=== PATIENT | female | born 1935 | race Caucasian/White ===

== ENCOUNTER 2023-07-07 07:46 | Emergency (ER) | payer MEDICARE, OTHER, SELFPAY ==
[2023-07-07 07:48] VITALS: BP 136/74
--- NOTE | 2023-07-07 08:19 | ED.GENMED ---
History of Present Illness
General
Chief Complaint: Swallowing Problem
Source: patient and spouse
Exam Limitations: none
Time Seen by Provider: 07/07/23 08:04
Nursing documentation reviewed up to this point in time: agreed with
Travel History
Have you had any contact with someone who has COVID-19?: No
Do you have any symptoms of coronavirus? Fever > 100 degrees, chills, cough, shortness of breath, sore throat, loss of taste or smell, muscle aches, or headache?: No
History of Present Illness
History of Present Illness:
88-year-old female with a past medical history of atrial fibrillation, TIA, irritable bowel syndrome who presents to the emergency department with her for evaluation of dysphagia and chest discomfort. Patient reports onset of symptoms about
2 weeks ago and they have been intermittent since that time. She reports she has had sensation of things getting caught in her throat when she swallows�she says sensation happens about the midsternum. She says that this is exclusively for solids
and she does not have any symptoms when swallowing liquids or yogurt. She says it is worse when she wakes up in the morning and seems to improve as the day goes on. It improves slightly when she drinks water. She says that she gets associated
discomfort in the mid sternum that last for hours at a time. She says that she has not had any nausea or vomiting with this. She denies any abdominal pain. She denies any breathing issues or coughing. She denies similar symptoms in the past.
She says she has not seen a doctor for this yet--she says she called to make an appointment but there was no availability for many weeks out.
Past History
Past History
ED Past Medical History: Arrthythmia, Hypercholesterolemia and Other (TIA)
ED Past Surgical History: Cholecystectomy and Gynecological
Social History
Tobacco: Former smoker
Alcohol: Occasional
Drug: None
Personal:
Living: with family
Employment: Retired
Family History
Family History: Other
Review of Systems
Review of Systems
All Other Systems: ROS reviewed and negative except as documented in HPI and ROS
Constitutional: Denies fever or chills
EENT: Denies sore throat or runny nose
Respiratory: Denies cough or trouble breathing
Cardiac: Reports chest pain; Denies palpitations
ABD/GI: Reports other (Dysphagia); Denies abdominal pain, nausea or vomiting
: Denies flank pain
Musculoskeletal: Denies neck pain or back pain
Neurological: Denies dizzy or headache
Phy Exam
Physical Exam
Physical Exam:
General: Awake, alert; no acute distress
Head: Normocephalic, atraumatic
Eyes: Conjunctiva normal, EOMI
Throat: Airway intact, handling secretions, midline uvula with no erythema or edema, no tonsillar enlargement
Neck: Trachea midline, supple without meningismus, no thyroid nodules or enlargement
Lungs: Clear to auscultation bilaterally, no wheezing, rales, rhonchi
Heart: Regular rate and rhythm, no murmurs, gallops, or rubs
Abd: Soft, non distended, nontender
Neuro: Cranial nerves grossly intact, speech fluid
Skin: no rash
Extremities: No edema in extremities, warm and well-perfused
Scores
Heart Failure Risk
Heart Failure Risk Score: Not Applicable
Heart Score for Chest Pain Patients
STEMI patient?: Not applicable
Withdrawal Assessment of Alcohol
Withdrawal Assessment Completed?: Not applicable
Course
Orders/Labs/Results
Orders:
Orders
07/07/23 08:18
Electrocardiogram (*1) Urgent
Reason for Study: Chest Pain
EKG- Treatment ONCE
Mag Hydrox/Al Hydrox/Simeth [Maalox] 30 ml Phenobarb/Hyoscy/Atropine/Scop [] 10 ml Viscous Lidocaine 2% [Xylocaine Viscous Cup] 10 ml PO NOW
Pantoprazole [Protonix IV] 40 mg IV NOW STA
07/07/23 08:25
CR Chest - 2 Views Urgent
Comment:
Reason For Exam: dysphagia, chest discomfort
07/07/23 08:28
Mag Hydrox/Al Hydrox/Simeth [Maalox] 30 ml .ROUTE .STK-MED ONE
Phenobarb/Hyoscy/Atropine/Scop [] 10 ml .ROUTE .STK-MED ONE
Viscous Lidocaine 2% [Xylocaine Viscous Cup] 15 ml .ROUTE .STK-MED ONE
07/07/23 08:49
Complete Blood Count/With Diff Urgent
Comprehensive Metabolic Panel Urgent
Lipase Urgent
TSH Reflex To Free T4 Urgent
Troponin I Urgent
Abnormal Lab Results
07/07/23
08:49
RBC 3.74 L 10^6/uL
(4.20-5.40)
Hct 36.3 L %
(37.0-47.0)
MCH 32.9 H pg
(27.0-31.0)
Eosinophils % 7.9 H %
(0-6)
Chloride 108 H mmol/L
(98-107)
Total Protein 6.1 L g/dl
(6.3-8.2)
07/07/23 08:49
07/07/23 08:49
Vital Signs
Initial and Last Documented VS:
Initial Vital Signs
Temp Pulse Resp BP Pulse Ox
36.7 C 70 18 136/74 97
07/07/23 07:48 07/07/23 07:48 07/07/23 07:48 07/07/23 07:48 07/07/23 07:48
Last Documented Vital Signs
Temp Pulse Resp BP Pulse Ox
36.7 C 70 18 136/74 97
07/07/23 07:48 07/07/23 07:48 07/07/23 07:48 07/07/23 07:48 07/07/23 07:48
MDM/Problems Addressed
Differential Diagnosis Includes:
Esophageal stricture, esophagitis, GERD, esophageal obstruction, tumor/mass, thyroid enlargement
MDM/Problems Addressed:
88-year-old female presents for evaluation of dysphagia with solids and sensation of chest discomfort/food sticking in her mid sternum. This has been ongoing for 2 weeks, worse in the morning. No nausea or vomiting. No breathing difficulties.
Vital signs normal here. Exam as above. History most consistent with GERD/esophagitis although differential would also include stricture. Given her report of chest discomfort will check an EKG, basic screening labs including troponin, thyroid
studies. Check chest x-ray. Will plan to treat with green grabber and Protonix. She will need a GI referral and likely endoscopy but no clear indication for emergent endoscopy�she is handling secretions has no signs of esophageal obstruction.
Monitor closely reassess after the above.
Discussed with gastroenterology�they can see patient in the office this afternoon at 1:45 PM. Pending workup will plan likely for discharge with this follow-up plan in place.
Labs reviewed: CBC and CMP unremarkable, troponin undetectable, thyroid studies normal. Chest x-ray reviewed by me shows no acute disease. Suspect likely GERD/esophagitis. Stricture also a consideration. Patient feeling much better after
treatment here in the ED. We have a strong follow-up plan in place patient to see GI later today in the office. At this point we will plan for discharge will prescribe PPI. Patient comfortable with this plan. Spoke about return precautions all
questions answered.
*Pulse Oximetry
Patient hypoxic: no
*EKG
Interpreted by ED Provider?: Yes
Heart Rate: 64
Rate: normal
Rhythm: sinus
[place]: normal axis
Interval: normal interval
QRS Pattern: normal QRS
Ischemia: other (Possible inferior infarct age undetermined similar to prior)
*Critical Care Note
Total Time (30-74mins, 75-104mins- exclusive of procedures): Not Applicable
Data Reviewed
Review of Other/Old Records Reveals: Labs and Records
Source: patient and spouse
Patient Management
Social determinants of health affecting care: Strong social support
Discussion with other providers: Outside Salesman (Discussed with GI)
ED Attending Note
-
Portions of this chart may have been created with voice recognition software.� Occasional wrong word or��sound alike� substitutions may have occurred due to the inherent limitations of voice recognition software.
Discharge Plan
Departure
Patient Disposition: Home (Routine Discharge)
Date of Disposition: 07/07/23
Time of Disposition: 09:57
Patient with high blood pressure during this ER visit?: No
Discharge Problem:
Dysphagia
Instructions: Dysphagia, Esophagitis
Prescriptions:
New
pantoprazole 40 mg tablet,delayed release (DR/EC)
40 mg PO BID Qty: 60 0RF
No Action
atorvastatin 10 MG tablet
10 mg PO QPM Qty: 30 0RF
ascorbic acid (vitamin C) [Vitamin C] 500 MG tablet
500 mg PO DAILY
conjugated estrogens [Premarin] 0.3 MG tablet
0.3 mg PO DAILY
mirabegron [Myrbetriq] 50 MG tablet extended release 24 hr
50 mg PO DAILY
acetaminophen [Tylenol] 325 MG capsule
650 mg PO Q4H PRN (Reason: KNEE PAIN)
multivitamin with iron [Daily Multiple Vitamins/Iron] 1 EACH tablet
1 ea PO DAILY
aspirin 81 MG tablet,delayed release (DR/EC)
81 mg PO HS
metoprolol succinate [Toprol XL] 25 MG tablet extended release 24 hr
25 mg PO HS
diphenoxylate-atropine 1 TABLET tablet
1 tab PO Q4HPRN PRN (Reason: diarrhea)
cholecalciferol (vitamin D3) [Vitamin D3] 25 MCG capsule
1,000 unit PO DAILY
apixaban [Eliquis] 5 MG tablet
5 mg PO BID
Referrals:
Tip Davalos MD [Active] - 07/07/23 1:45 pm
Activity Restrictions/Additional Instructions:
Thank you for visiting the Emergency Department at [facility].
1. Please schedule a follow up appointment as directed. Call first thing tomorrow morning to make an appointment.
2. If indicated, please take your medications as instructed and indicated on discharge paperwork.
3. If any of your symptoms do not improve, or persist, or become more severe within 6-12 hours, please return to the emergency department for further care.
4. Please return to the emergency department if you develop a headache, neck pain/stiffness, fever greater than 100.4F, chest pain, shortness of breath, persistent nausea, vomiting, slurred speech, difficulty walking, numbness/tingling, weakness,
signs of infection or any other symptoms that are worrisome to you.
Please call [phone] if you have any questions.
Interventions
Interventions:
*Risk Screen - Suicide Last Done: 07/07/23 07:48
*General Assessment Last Done: 07/07/23 07:48
*Neglect/Abuse Screening Last Done: 07/07/23 07:48
ED- Fall Risk Assessment Last Done: 07/07/23 08:45
*ED COVID-19 Vaccine History Last Done: 07/07/23 07:48
PU-Zhvhog-Suetvrvbtu Assessment Last Done: 07/07/23 08:45
ED- Pulmonary Assessment Last Done: 07/07/23 08:45
[2023-07-07] MEDS: PROTONIX IV 40 MG IV (08:47)
[2023-07-07] MEDS: MAALOX 50 PO (08:47)
[2023-07-07 09:10] LABS: % Basophils 0.6 % (0-2); % Eosinophils 7.9 % (0-6); % Immature Granulocytes 0.4 % (0-0.5); % Lymphocytes 32.1 % (20.5-51.1); % Monocytes 7.5 % (1.7-9.3); % Neutrophils 51.5 % (42.2-75.2); Absolute Eosinophils 0.4 10^3/uL (0-0.7); Absolute Lymphocytes 1.7 10^3/uL (1.2-3.4); Absolute Monocytes 0.4 10^3/uL (0.1-0.6); Absolute Neutrophils 2.7 10^3/uL (1.4-6.5); Hematocrit 36.3 % (37.0-47.0); Hemoglobin 12.3 g/dL (12.0-16.0); Mean Corp Hgb Conc. 33.9 g/dL (33.0-37.0); Mean Corpuscular Hgb 32.9 pg (27.0-31.0); Mean Corpuscular Volume 97.1 fL (81.0-99.0); Mean Platelet Volume 9.8 fL (7.4-10.4); Nucleated Red Blood Cells % 0 %; Platelet Count 191 10^3/uL (130-400); Red Blood Cell Count 3.74 10^6/uL (4.20-5.40); Red Cell Dist. Width 13.8 % (11.5-14.5); White Blood Cell Count 5.2 10^3/uL (4.8-10.8)
[2023-07-07 09:35] LABS: Troponin I < 0.012 ng/ml
[2023-07-07 09:52] LABS: ALT (SGPT) 18 U/L (0-35); AST (SGOT) 25 U/L (14-36); Albumin 3.7 g/dl (3.5-5.0); Alkaline Phosphatase 63 U/L (38-126); Blood Urea Nitrogen 14 mg/dl (7-17); Calcium 9.1 mg/dl (8.4-10.2); Carbon Dioxide 28 mmol/L (22-30); Chloride 108 mmol/L (98-107); Glucose 93 mg/dl (70-99); Lipase 78 U/L (23-300); Potassium 4.1 mmol/L (3.5-5.1); Sodium 139 mmol/L (135-145); Total Bilirubin 1.1 mg/dl (0.2-1.3); Total Protein 6.1 g/dl (6.3-8.2); eGFR > 60.00
[2023-07-07 09:55] LABS: TSH Reflex To Free T4 3.72 uIU/ml (0.47-4.68)
[2023-07-07 10:20] VITALS: BP 144/73
== END 2023-07-07 10:33 | disposition home or self-care (01) ==
LOC: EMR 07:46
PROVIDERS: EMERGENCY PHYSICIAN Emergency Medicine; FAMILY PHYSICIAN Family Medicine
DX: R13.10 Dysphagia, unspecified (principal); R07.89 Other chest pain; I48.91 Unspecified atrial fibrillation; Z86.73 Personal history of transient ischemic attack (TIA), and cerebral infarction without residual deficits; Z87.891 Personal history of nicotine dependence
CPT/HCPCS: 99285; 96374; 71046; 80053; 83690; 84443; 84484; 85025; 93005

== ENCOUNTER 2023-07-12 05:07 | Emergency (ER) | payer MEDICARE, OTHER, SELFPAY ==
[2023-07-12 05:10] VITALS: BP 140/82
[2023-07-12 05:25] LABS: % Basophils 0.4 % (0-2); % Eosinophils 7.5 % (0-6); % Immature Granulocytes 0.1 % (0-0.5); % Lymphocytes 40.8 % (20.5-51.1); % Monocytes 6.9 % (1.7-9.3); % Neutrophils 44.3 % (42.2-75.2); Absolute Eosinophils 0.5 10^3/uL (0-0.7); Absolute Lymphocytes 2.9 10^3/uL (1.2-3.4); Absolute Monocytes 0.5 10^3/uL (0.1-0.6); Absolute Neutrophils 3.1 10^3/uL (1.4-6.5); Hematocrit 37.8 % (37.0-47.0); Hemoglobin 12.4 g/dL (12.0-16.0); Mean Corp Hgb Conc. 32.8 g/dL (33.0-37.0); Mean Corpuscular Hgb 32.1 pg (27.0-31.0); Mean Corpuscular Volume 97.9 fL (81.0-99.0); Mean Platelet Volume 9.9 fL (7.4-10.4); Nucleated Red Blood Cells % 0 %; Platelet Count 201 10^3/uL (130-400); Red Blood Cell Count 3.86 10^6/uL (4.20-5.40); White Blood Cell Count 7.1 10^3/uL (4.8-10.8)
[2023-07-12 05:45] LABS: ALT (SGPT) 16 U/L (0-35); AST (SGOT) 24 U/L (14-36); Albumin 3.8 g/dl (3.5-5.0); Alkaline Phosphatase 62 U/L (38-126); Blood Urea Nitrogen 18 mg/dl (7-17); Calcium 9.4 mg/dl (8.4-10.2); Carbon Dioxide 26 mmol/L (22-30); Chloride 108 mmol/L (98-107); Glucose 104 mg/dl (70-99); Lipase 99 U/L (23-300); Potassium 3.7 mmol/L (3.5-5.1); Sodium 138 mmol/L (135-145); Total Bilirubin 0.9 mg/dl (0.2-1.3); Total Protein 6.3 g/dl (6.3-8.2); eGFR > 60.00
[2023-07-12 06:07] VITALS: BP 147/89
[2023-07-12 06:08] VITALS: BMI 29.3
--- NOTE | 2023-07-12 06:38 | ED.GENMED ---
History of Present Illness
General
Chief Complaint: Abdominal Pain
Source: patient and spouse
Time Seen by Provider: 07/12/23 06:37
Travel History
Have you had any contact with someone who has COVID-19?: No
Do you have any symptoms of coronavirus? Fever > 100 degrees, chills, cough, shortness of breath, sore throat, loss of taste or smell, muscle aches, or headache?: No
History of Present Illness
History of Present Illness:
This patient is an 88-year-old female presents emergency department complaints of discomfort across her lower chest associated with frequent burping. For the past 2 weeks, she has been having episodes of feeling like she cannot fully swallow solids
and also pills. This will create a sensation of chest discomfort in the lower chest area which will then migrate to the lower sternal area associated with frequent burping. She describes these as 'attacks', and seem to be particularly worse after
waking up. She was seen in the emergency department on , and was able to see GI the same day, who agreed with the ER assessment that this is likely related to GERD/esophagitis, consideration for stricture. She is planning to get an
endoscopy on July 27 and was advised to continue the Protonix, 40 mg, every morning before breakfast. She has not yet taken the Protonix this morning. Today, she awoke at approximately 4:30 AM with the same discomfort that is now located in the
epigastric lower sternal area. She took Tums, without full relief of symptoms. She says it feels 'blocked up' in the epigastric lower sternal area. She denies vomiting, nausea, weight loss. She reports frequent burping. She denies back pain,
neck pain, headache, dizziness, or other complaints. She denies bleeding.
Past History
Past History
ED Past Medical History: Arrthythmia, Hypercholesterolemia and Other (TIA)
ED Past Surgical History: Cardiac, Cholecystectomy and Gynecological
Social History
Tobacco: Former smoker
Alcohol: Occasional
Drug: None
Personal:
Living: with family
Employment: Retired
Family History
Family History: Other
Phy Exam
Physical Exam
Physical Exam:
GENERAL: Alert , in no apparent distress
EYE: pupils equal and reactive
NECK: Supple, no significant adenopathy.
ENT: o/p clr, mmm.
CARDIAC: Regular rate and rhythm .
LUNGS: Clear breath sounds bilaterally, no acute respiratory distress, no wheezes/rales/rhonchi
ABDOMEN: Soft, without focal tenderness, no r/g, no cvat
NEUROLOGICAL: Alert and oriented, no focal neuro deficits
SKIN: Warm and dry, skin intact.
MUSCULOSKELETAL: No edema, well perfused.
PSYCH: Normal and appropriate interaction.
Course
Orders/Labs/Results
Orders:
Orders
07/12/23 05:17
CMP [Comprehensive Metabolic Panel] Urgent
Complete Blood Count/With Diff Urgent
Lipase Urgent
07/12/23 06:13
ECG [Electrocardiogram (*1)] Urgent
Reason for Study: Chest Pain
Cardiology Consult: Unknown
EKG- Treatment ONCE
07/12/23 06:37
0.9% Sodium Chloride 500 ml [Nss] 500 ml IV BOLUS
Pantoprazole [Protonix IV] 40 mg IV NOW STA
07/12/23 06:44
Add On- LAB Urgent
Tests Added?: troponin
07/12/23 07:05
Troponin I Urgent
Comment: PLEASE DRAW; NO GREEN TOP SPECIMEN TO ADD ON TO
07/12/23 08:27
Upper GI W/O KUB [RF UGI-Single Contrast] Urgent
Comment:
Reason For Exam: trouble swallowing (gastrograffin please)
07/12/23 10:42
Sucralfate Suspension [Carafate Suspension] 1 gm PO NOW STA
Abnormal Lab Results
07/12/23
05:17
RBC 3.86 L 10^6/uL
(4.20-5.40)
MCH 32.1 H pg
(27.0-31.0)
MCHC 32.8 L g/dL
(33.0-37.0)
Eosinophils % 7.5 H %
(0-6)
Chloride 108 H mmol/L
(98-107)
BUN 18 H mg/dl
(7-17)
Glucose 104 H mg/dl
(70-99)
07/12/23 05:17
07/12/23 05:17
Vital Signs
Initial and Last Documented VS:
Initial Vital Signs
Temp Pulse Resp BP Pulse Ox
98.2 F 74 18 140/82 98
07/12/23 05:10 07/12/23 05:10 07/12/23 05:10 07/12/23 05:10 07/12/23 05:10
Last Documented Vital Signs
Temp Pulse Resp BP Pulse Ox
98.2 F 64 13 143/79 95
07/12/23 05:10 07/12/23 09:00 07/12/23 09:00 07/12/23 09:00 07/12/23 09:00
*Critical Care Note
Total Time (30-74mins, 75-104mins- exclusive of procedures): Not Applicable
Update Note
Update Note:
Patient presents to the Emergency Department with epigastric lower sternal discomfort associated with frequent burping
Number and Complexity of Problems Addressed at the Encounter
� Chronic conditions affecting care:
� Acute Exacerbation and/or Progression of Chronic Illness:
� Differential Diagnosis includes: But not limited to ACS, reflux, esophagitis, esophageal stricture, esophageal mass, etc.
Amount and/or Complexity of Data to be Reviewed and Analyzed
� I performed an independent evaluation of and my interpretation is:
EKG: Read by me, normal sinus rhythm, normal rate, normal axis, no acute ischemia
CT:
Xrays:
Laboratory Studies: Generally unremarkable
Other:ugi Smooth mid esophageal stricture with maximum luminal diameter approximately 5.7 mm. This extends over approximately 1 to 2 cm in length. No evidence of retained foreign body.
� Review of other/old records reveals:
� Clinical information was obtained by an independent historian: who is bedside, ER record
� Prescriptions/Medications Considered but not given:
� Further testing considered but not performed:
Risk of Complications and/or Morbidity or Mortality of Patient Management
� Social determinants of health affecting care:
� Discussion with other providers (PCP, Hospitalists, Consultants, etc):
� Escalation of care including admission/observation vs risk of discharge considered: Patient resting comfortably, tolerating secretions, no vomiting. Case discussed with GI, Dr. MONTEJO who recommends an upper GI with Gastrografin.
Case discussed with radiologist, Dr. Zana Lopez, and we coordinated proper ordering of the test. Patient updated.
10:44 AM patient remains very comfortable here, tolerating secretions. Case discussed with Dr. Montejo, aware of radiology report. Recommends discharge and Dr. Davalos will try to move up her EGD appointment as long as she is tolerating solids.
Discussion with patient she confirms that she is able to tolerate solids and has been following a soft diet. She is certainly tolerating secretions and has no impending airway involvement. No weight loss or dehydration. Discussed with patient
importance of follow-up, medication compliance, and reasons to return to the ER.
ED Attending Note
-
Portions of this chart may have been created with voice recognition software.� Occasional wrong word or��sound alike� substitutions may have occurred due to the inherent limitations of voice recognition software.
Discharge Plan
Departure
Patient Disposition: Home (Routine Discharge)
Date of Disposition: 07/12/23
Time of Disposition: 10:42
Patient with high blood pressure during this ER visit?: Yes
Condition: Good
Discharge Problem:
Esophageal stricture
Instructions: Esophageal stricture, BLOOD PRESSURE
Prescriptions:
New
sucralfate [Carafate] 100 mg/mL suspension
10 ml PO BID Qty: 420 0RF
No Action
atorvastatin 10 MG tablet
10 mg PO QPM Qty: 30 0RF
ascorbic acid (vitamin C) [Vitamin C] 500 MG tablet
500 mg PO DAILY
conjugated estrogens [Premarin] 0.3 MG tablet
0.3 mg PO DAILY
mirabegron [Myrbetriq] 50 MG tablet extended release 24 hr
50 mg PO DAILY
acetaminophen [Tylenol] 325 MG capsule
650 mg PO Q4H PRN (Reason: KNEE PAIN)
multivitamin with iron [Daily Multiple Vitamins/Iron] 1 EACH tablet
1 ea PO DAILY
aspirin 81 MG tablet,delayed release (DR/EC)
81 mg PO HS
metoprolol succinate [Toprol XL] 25 MG tablet extended release 24 hr
25 mg PO HS
diphenoxylate-atropine 1 TABLET tablet
1 tab PO Q4HPRN PRN (Reason: diarrhea)
cholecalciferol (vitamin D3) [Vitamin D3] 25 MCG capsule
1,000 unit PO DAILY
apixaban [Eliquis] 5 MG tablet
5 mg PO BID
pantoprazole 40 mg tablet,delayed release (DR/EC)
40 mg PO BID Qty: 60 0RF
Referrals:
Tip Davalos MD [Active] - Next open appointment
Kevin Cuenca MD [Family Provider] -
Activity Restrictions/Additional Instructions:
YOUR GI DOCTOR WILL MAKE EFFORTS TO MOVE YOUR APPOINTMENT FOR AN ENDOSCOPY SOONER THAN SCHEDULED AT JULY 27. IN THE MEANTIME, PLEASE TAKE YOUR MEDICATIONS DIRECTED. IF YOU DEVELOP DIFFICULTY EATING, DRINKING, RECURRENT OR NEW PAIN, SHORTNESS
OF BREATH, DIFFICULTY CONTAINING YOUR SALIVA, FEVER, ABDOMINAL PAIN, OR OTHER WORRISOME SIGNS, PLEASE RETURN TO THE ER IMMEDIATELY.
Interventions
Interventions:
*Risk Screen - Suicide Last Done: 07/12/23 05:10
*General Assessment Last Done: 07/12/23 06:09
*Neglect/Abuse Screening Last Done: 07/12/23 05:10
ED- Fall Risk Assessment Last Done: 07/12/23 06:09
*ED COVID-19 Vaccine History Last Done: 07/12/23 06:09
AR-Xgfens-Dnmymicolk Assessment Last Done: 07/12/23 06:09
[2023-07-12 07:03] VITALS: BP 147/89
[2023-07-12] MEDS: NSS 500 IV (07:06)
[2023-07-12] MEDS: PROTONIX IV 40 MG IV (07:06)
[2023-07-12 07:37] LABS: Troponin I < 0.012 ng/ml
[2023-07-12 08:00] VITALS: BP 158/79
[2023-07-12 08:46] VITALS: BP 137/111
[2023-07-12 09:00] VITALS: BP 143/79
[2023-07-12] MEDS: CARAFATE SUSPENSION 1 GM PO (11:06)
== END 2023-07-12 11:20 | disposition home or self-care (01) ==
LOC: EMR 05:07
PROVIDERS: Student in an Organized Health Care Education/Training Program; EMERGENCY PHYSICIAN Emergency Medicine; FAMILY PHYSICIAN Family Medicine
DX: K22.2 Esophageal obstruction (principal); R03.0 Elevated blood-pressure reading, without diagnosis of hypertension; Z87.891 Personal history of nicotine dependence
CPT/HCPCS: 99285; 96374; 96361; 74240; 80053; 83690; 84484; 85025; 93005

== ENCOUNTER 2023-07-18 23:53 | Emergency (ER) | payer MEDICARE, OTHER, SELFPAY ==
[2023-07-18 23:54] VITALS: BMI 28.7
[2023-07-18 23:57] VITALS: BP 143/82
[2023-07-19 00:37] LABS: % Basophils 0.9 % (0-2); % Eosinophils 8.8 % (0-6); % Immature Granulocytes 1.3 % (0-0.5); % Lymphocytes 25.3 % (20.5-51.1); % Monocytes 7.1 % (1.7-9.3); % Neutrophils 56.6 % (42.2-75.2); Absolute Basophils 0.1 10^3/uL (0-0.2); Absolute Eosinophils 0.7 10^3/uL (0-0.7); Absolute Immature Granulocytes 0.1 10^3/uL (0-0.05); Absolute Lymphocytes 1.9 10^3/uL (1.2-3.4); Absolute Monocytes 0.5 10^3/uL (0.1-0.6); Absolute Neutrophils 4.2 10^3/uL (1.4-6.5); Hematocrit 39.4 % (37.0-47.0); Hemoglobin 12.8 g/dL (12.0-16.0); Mean Corp Hgb Conc. 32.5 g/dL (33.0-37.0); Mean Corpuscular Hgb 31.6 pg (27.0-31.0); Mean Corpuscular Volume 97.3 fL (81.0-99.0); Mean Platelet Volume 9.9 fL (7.4-10.4); Nucleated Red Blood Cells % 0 %; Platelet Count 190 10^3/uL (130-400); Red Blood Cell Count 4.05 10^6/uL (4.20-5.40); Red Cell Dist. Width 13.6 % (11.5-14.5); White Blood Cell Count 7.5 10^3/uL (4.8-10.8)
[2023-07-19 00:43] LABS: Troponin I < 0.012 ng/ml
[2023-07-19 00:47] LABS: ALT (SGPT) 16 U/L (0-35); AST (SGOT) 31 U/L (14-36); Albumin 4.1 g/dl (3.5-5.0); Alkaline Phosphatase 53 U/L (38-126); Blood Urea Nitrogen 15 mg/dl (7-17); Calcium 9.8 mg/dl (8.4-10.2); Carbon Dioxide 26 mmol/L (22-30); Chloride 105 mmol/L (98-107); Glucose 106 mg/dl (70-99); Lipase 90 U/L (23-300); Potassium 3.9 mmol/L (3.5-5.1); Sodium 136 mmol/L (135-145); Total Bilirubin 1.4 mg/dl (0.2-1.3); Total Protein 6.7 g/dl (6.3-8.2); eGFR > 60.00
--- NOTE | 2023-07-19 02:31 | ED.GENMED ---
History of Present Illness
<HELEN Smiley - Last Filed: 07/19/23 02:43>
General
Chief Complaint: Abdominal Pain
Source: patient
Exam Limitations: none
Time Seen by Provider: 07/19/23 02:19
Nursing documentation reviewed up to this point in time: agreed with
Travel History
Have you had any contact with someone who has COVID-19?: No
Do you have any symptoms of coronavirus? Fever > 100 degrees, chills, cough, shortness of breath, sore throat, loss of taste or smell, muscle aches, or headache?: No
History of Present Illness
History of Present Illness:
patient is a 88 y/o female with PMH of esophageal stricture presenting with chest pain and trouble swallowing. Patient has a history of a esophageal stricture with a GI appointment scheduled for July 27. Patient states her symptoms are worsening
with increased salivation and dysphagia. Patient admits to decreased oral intake due to pain. Patient admits to nausea with no vomiting. Patient denies regurgitation, fever, vomiting, chills, DACOSTA, bleeding. patient was here 2 weeks ago for the same
issue and she admits that she was placed on pantoprazole and sucralfate. patient denies any relief with medications.
Past History
<HELEN Smiley - Last Filed: 07/19/23 02:43>
Past History
ED Past Medical History: Arrthythmia, Hypercholesterolemia and Other (TIA)
ED Past Surgical History: Cardiac, Cholecystectomy and Gynecological
Social History
Tobacco: Former smoker
Alcohol: Occasional
Drug: None
Personal:
Living: with family
Employment: Retired
Family History
Family History: Other
Review of Systems
<HELEN Smiley - Last Filed: 07/19/23 02:43>
Review of Systems
All Other Systems: Not applicable
Constitutional: Reports no symptoms
EENT: Reports other (increased salivation)
Respiratory: Reports no symptoms
Cardiac: Reports chest pain
ABD/GI: Reports nausea
: Reports no symptoms
Musculoskeletal: Reports no symptoms
Skin: Reports no symptoms
Neurological: Reports no symptoms
Endocrine: Reports no symptoms
Hematologic/Lymphatic: Reports no symptoms
Psychiatric: Reports no symptoms
Phy Exam
<HELEN Smiley - Last Filed: 07/19/23 02:43>
General Physical Exam
General Presentation: well appearing and no apparent distress
General Skin: warm and dry
General Habitus: normal
General Mental: alert
General Hydration: appears well hydrated
ENT Exam
ENT Exam: EOMI, pharynx normal, neck supple and normocephalic
Eye Exam
Eye Exam: PERRL, cornea clear and conjunctiva normal
Cardiovascular Exam
Cardiovascular Exam: regular rate/rhythm, no edema, no murmur and normal peripheral pulses
Pulmonary Exam
Pulmonary Exam: lungs clear, no respiratory distress, no rales, no crackles, no rhonchi, no stridor, no wheezing and no cough
Gastrointestinal Exam
Gastrointestinal Exam: normal bowel sounds, non tender, soft, no organomegaly, no pulsatile mass and non distended
Neurological Exam
Neurological Exam: alert, oriented x3, no motor deficits and speech normal
Musculoskeletal Exam
Musculoskeletal Exam: full ROM and no edema
Skin Exam
Skin Exam: normal color, warm/dry, no rash and no petechia
Psychiatric Exam
Psychiatric Exam: normal mood/affect
Course
<HELEN Smiley - Last Filed: 07/19/23 02:43>
Orders/Labs/Results
Orders:
Orders
07/18/23 23:56
Electrocardiogram (*1) Urgent
Reason for Study: Other
Other Reason for Exam: epigastric abdominal pain
07/18/23 23:57
EKG- Treatment ONCE
07/19/23 00:12
Complete Blood Count/With Diff Urgent
Comprehensive Metabolic Panel Urgent
Lipase Urgent
Troponin I Urgent
07/19/23 02:55
Pantoprazole [Protonix] 40 mg PO NOW STA
Sucralfate Suspension [Carafate Suspension] 1 gm PO NOW STA
Abnormal Lab Results
07/19/23
00:12
RBC 4.05 L 10^6/uL
(4.20-5.40)
MCH 31.6 H pg
(27.0-31.0)
MCHC 32.5 L g/dL
(33.0-37.0)
Abs Immat Gran (auto) 0.1 H 10^3/uL
(0-0.05)
Immature Gran % 1.3 H %
(0-0.5)
Eosinophils % 8.8 H %
(0-6)
Glucose 106 H mg/dl
(70-99)
Total Bilirubin 1.4 H mg/dl
(0.2-1.3)
07/19/23 00:12
07/19/23 00:12
Vital Signs
Initial and Last Documented VS:
Initial Vital Signs
Temp Pulse Resp BP Pulse Ox
98.7 F 84 18 143/82 97
07/18/23 23:57 07/18/23 23:57 07/18/23 23:57 07/18/23 23:57 07/18/23 23:57
Last Documented Vital Signs
Temp Pulse Resp BP Pulse Ox
98.7 F 84 18 143/82 97
07/18/23 23:57 07/18/23 23:57 07/18/23 23:57 07/18/23 23:57 07/18/23 23:57
<Debby Gray DO - Last Filed: 07/19/23 03:21>
Orders/Labs/Results
Orders:
Orders
07/18/23 23:56
Electrocardiogram (*1) Urgent
Reason for Study: Other
Other Reason for Exam: epigastric abdominal pain
07/18/23 23:57
EKG- Treatment ONCE
07/19/23 00:12
Complete Blood Count/With Diff Urgent
Comprehensive Metabolic Panel Urgent
Lipase Urgent
Troponin I Urgent
07/19/23 02:55
Pantoprazole [Protonix] 40 mg PO NOW STA
Sucralfate Suspension [Carafate Suspension] 1 gm PO NOW STA
Abnormal Lab Results
07/19/23
00:12
RBC 4.05 L 10^6/uL
(4.20-5.40)
MCH 31.6 H pg
(27.0-31.0)
MCHC 32.5 L g/dL
(33.0-37.0)
Abs Immat Gran (auto) 0.1 H 10^3/uL
(0-0.05)
Immature Gran % 1.3 H %
(0-0.5)
Eosinophils % 8.8 H %
(0-6)
Glucose 106 H mg/dl
(70-99)
Total Bilirubin 1.4 H mg/dl
(0.2-1.3)
07/19/23 00:12
07/19/23 00:12
Vital Signs
Initial and Last Documented VS:
Initial Vital Signs
Temp Pulse Resp BP Pulse Ox
98.7 F 84 18 143/82 97
07/18/23 23:57 07/18/23 23:57 07/18/23 23:57 07/18/23 23:57 07/18/23 23:57
Last Documented Vital Signs
Temp Pulse Resp BP Pulse Ox
98.7 F 84 18 143/82 97
07/18/23 23:57 07/18/23 23:57 07/18/23 23:57 07/18/23 23:57 07/18/23 23:57
<HELEN Smiley - Last Filed: 07/19/23 02:43>
MDM/Problems Addressed
Differential Diagnosis Includes:
partial esophageal closure due to stricture
complete closure of esophagus due to stricture
MDM/Problems Addressed:
chest pain and dysphagia
<HELEN Smiley - Last Filed: 07/19/23 02:43>
*Critical Care Note
Total Time (30-74mins, 75-104mins- exclusive of procedures): Not Applicable
ED Attending Note
<HELEN Smiley - Last Filed: 07/19/23 02:43>
-
Portions of this chart may have been created with voice recognition software.� Occasional wrong word or��sound alike� substitutions may have occurred due to the inherent limitations of voice recognition software.
<Debby Gray DO - Last Filed: 07/19/23 03:21>
ED Attending Note
Patient seen and examined by attending physician: Yes
I performed the substantive portion of visit, reviewed & personally made and approve the management plan that is documented in note by myself or IVETTE.: Yes
I performed a history and physical exam of patient and discussed management with resident, I reviewed resident's note and agree with documented findings and plan of care.: Yes
ED Attending Note:
This is an 88-year-old woman with history of atrial fibrillation chronically maintained on Eliquis. She presents with several week history of substernal chest pain that radiates to her epigastric region, worse with eating and drinking associated
with frequent burping and worse with lying supine.
Previous ED visits July 06 and again July 11 for similar complaint. Unremarkable laboratory studies, EKG. She has been following with GI, Dr. Davalos with initial visit promptly after ED visit on the same day July 06.
She underwent Gastrografin swallow study during ED visit July 11 that showed mid esophageal smooth stricture at 5.7 mm.
Recommended to continue Protonix and according to patient was instructed to take this just once daily as per Dr. Davalos and liquid Carafate added twice daily.
She is scheduled for upper endoscopy July 27 but is awaiting a return call from GI office today with plan to bump up endoscopy for sometime this week. She does note that she must discontinue Eliquis and aspirin 2 days prior to her endoscopy. Thus
far has been continuing her anticoagulants.
She admits to feeling improved yesterday morning and has been limiting her diet to clear liquids and soft foods but after attempting to eat scrambled eggs yesterday pain intensified and has worsened tonight after lying down. She admits to
intermittent nausea but has had no regurgitation, no vomiting. She does note some pain with swallowing but able to do so without regurgitation.
She has not had a fever nor chills, no cough no shortness of breath.
No abdominal pain.
GENERAL: 88-year-old woman appears her stated age, bright and alert, pleasant, appears in no acute distress. is accompanying.
EYE: anicteric
NECK: Supple, nontender, no meningismus, no significant adenopathy.
ENT: posterior pharynx is clear, oral mucosa is moist. No rhinorrhea.
CARDIAC: Regular rate and rhythm. no murmur.
LUNGS: Clear breath sounds bilaterally, no acute respiratory distress, no wheezes/rales/rhonchi
ABDOMEN: Soft, nondistended, without focal tenderness, normoactive BS.
NEUROLOGICAL: Alert and oriented x3, no focal neuro deficits.
SKIN: Warm and dry, normal color, skin intact. No rash.
MUSCULOSKELETAL: No C/C/E. peripheral pulses are full and equal b/l. No palpable tenderness.
PSYCH: Normal and appropriate interaction.
Patient returns to the ED with continued mid substernal discomfort that is worse with swallowing, frequent burping and worse with lying supine.
Has a known mid esophageal stricture at 5.7 mm but continues to have no regurgitation, no vomiting, no coughing or shortness of breath.
Labs again are unremarkable and reassuring with normal white blood cell count, normal H&H, normal chemistries including normal BUN and creatinine, normal electrolytes. No evidence of dehydration nor acute kidney injury. Troponin again is negative.
With reassuring labs and no episodes of regurgitation, vomiting there is no indication for urgent/emergent endoscopy.
Clinically appears well-hydrated and this is reflected in labs as well.
Recommend she continue with clear liquids, soft foods and will increase Carafate to 4 times daily dosing.
She is scheduled to hear from GI office today.
Discharge Plan
Departure
Patient Disposition: Home (Routine Discharge)
Date of Disposition: 07/19/23
Time of Disposition: 03:17
Patient with high blood pressure during this ER visit?: No
Condition: Good
Discharge Problem:
Stricture of esophagus
Instructions: Acid Reflux and GERD in Adults (DC), Diet After Mouth or Throat Surgery
Prescriptions:
New
sucralfate [Carafate] 100 mg/mL suspension
10 ml PO QID Qty: 560 0RF
No Action
atorvastatin 10 MG tablet
10 mg PO QPM Qty: 30 0RF
ascorbic acid (vitamin C) [Vitamin C] 500 MG tablet
500 mg PO DAILY
conjugated estrogens [Premarin] 0.3 MG tablet
0.3 mg PO DAILY
mirabegron [Myrbetriq] 50 MG tablet extended release 24 hr
50 mg PO DAILY
acetaminophen [Tylenol] 325 MG capsule
650 mg PO Q4H PRN (Reason: KNEE PAIN)
multivitamin with iron [Daily Multiple Vitamins/Iron] 1 EACH tablet
1 ea PO DAILY
aspirin 81 MG tablet,delayed release (DR/EC)
81 mg PO HS
metoprolol succinate [Toprol XL] 25 MG tablet extended release 24 hr
25 mg PO HS
diphenoxylate-atropine 1 TABLET tablet
1 tab PO Q4HPRN PRN (Reason: diarrhea)
cholecalciferol (vitamin D3) [Vitamin D3] 25 MCG capsule
1,000 unit PO DAILY
apixaban [Eliquis] 5 MG tablet
5 mg PO BID
pantoprazole 40 mg tablet,delayed release (DR/EC)
40 mg PO BID Qty: 60 0RF
sucralfate [Carafate] 100 mg/mL suspension
10 ml PO BID Qty: 420 0RF
Referrals:
Tip Davalos MD [Active] - Next open appointment
Kevin Cuenca MD [Family Provider] -
Interventions
Interventions:
*Risk Screen - Suicide Last Done: 07/18/23 23:57
*General Assessment Last Done: 07/18/23 23:57
*Neglect/Abuse Screening Last Done: 07/18/23 23:57
Discharge Date and Time
Print Language: CITIZ[place]
[2023-07-19] MEDS: CARAFATE SUSPENSION 1 GM PO (03:04)
[2023-07-19] MEDS: PROTONIX 40 MG PO (03:04)
[2023-07-19 03:55] VITALS: BP 128/107
== END 2023-07-19 04:02 | disposition home or self-care (01) ==
LOC: EMR 23:53
PROVIDERS: EMERGENCY PHYSICIAN Emergency Medicine; FAMILY PHYSICIAN Family Medicine
DX: K22.2 Esophageal obstruction (principal); Z87.891 Personal history of nicotine dependence; I48.91 Unspecified atrial fibrillation
CPT/HCPCS: 99284; 80053; 83690; 84484; 85025; 93005

== ENCOUNTER → 2023-07-22 06:28 | Day surgery (SDC) | payer MEDICARE, OTHER, SELFPAY | LOC: GI 06:28 | PROVIDERS: ATTENDING PHYSICIAN Specialist | DX: R13.10 Dysphagia, unspecified (principal); K22.2 Esophageal obstruction; K31.89 Other diseases of stomach and duodenum; K29.50 Unspecified chronic gastritis without bleeding | CPT/HCPCS: 43249; 43239; 88305; 88342; 93005 ==

== ENCOUNTER → 2023-08-15 07:40 | Outpatient (REF) | payer MEDICARE, OTHER, SELFPAY | LOC: RAD 07:40 | PROVIDERS: ATTENDING PHYSICIAN Specialist; FAMILY PHYSICIAN Family Medicine | DX: R63.4 Abnormal weight loss (principal); R13.19 Other dysphagia | CPT/HCPCS: 71260; Q9967 ==

== ENCOUNTER → 2023-08-26 06:32 | Day surgery (SDC) | payer MEDICARE, OTHER, SELFPAY | LOC: GI 06:32 | PROVIDERS: ATTENDING PHYSICIAN Specialist | DX: K22.2 Esophageal obstruction (principal); R13.10 Dysphagia, unspecified | CPT/HCPCS: 43249; 43239; 88305 ==

== ENCOUNTER → 2023-11-04 12:13 | Outpatient (REF) | payer MEDICARE, OTHER, SELFPAY ==
[2023-11-04 13:24] LABS: % Basophils 0.8 % (0-2); % Eosinophils 10.9 % (0-6); % Immature Granulocytes 0.2 % (0-0.5); % Monocytes 7.7 % (1.7-9.3); % Neutrophils 46.4 % (42.2-75.2); Absolute Eosinophils 0.6 10^3/uL (0-0.7); Absolute Lymphocytes 1.8 10^3/uL (1.2-3.4); Absolute Monocytes 0.4 10^3/uL (0.1-0.6); Absolute Neutrophils 2.5 10^3/uL (1.4-6.5); Hematocrit 36.9 % (37.0-47.0); Hemoglobin 12.4 g/dL (12.0-16.0); Mean Corp Hgb Conc. 33.6 g/dL (33.0-37.0); Mean Corpuscular Hgb 32.6 pg (27.0-31.0); Mean Corpuscular Volume 97.1 fL (81.0-99.0); Mean Platelet Volume 10.6 fL (7.4-10.4); Nucleated Red Blood Cells % 0 %; Platelet Count 197 10^3/uL (130-400); Red Cell Dist. Width 14.1 % (11.5-14.5); White Blood Cell Count 5.3 10^3/uL (4.8-10.8)
[2023-11-04 13:48] LABS: ALT (SGPT) 14 U/L (0-35); AST (SGOT) 25 U/L (14-36); Alkaline Phosphatase 58 U/L (38-126); Blood Urea Nitrogen 26 mg/dl (7-17); Calcium 9.7 mg/dl (8.4-10.2); Carbon Dioxide 28 mmol/L (22-30); Chloride 107 mmol/L (98-107); Glucose 89 mg/dl (70-99); HDL Cholesterol 88 mg/dl; LDL Cholesterol, Calculated 52 mg/dl; Potassium 4.3 mmol/L (3.5-5.1); Sodium 141 mmol/L (135-145); Total Bilirubin 1.7 mg/dl (0.2-1.3); Total Cholesterol 156 mg/dl (50-199); Total Protein 6.3 g/dl (6.3-8.2); Triglyceride 81 mg/dl (10-149); Very Low Density Lipoprotein 16 mg/dl (0-30); eGFR > 60.00
[2023-11-04 14:21] LABS: TSH Reflex To Free T4 2.87 uIU/ml (0.47-4.68)
[2023-11-04 17:07] LABS: Urine Albumin Negative (Neg - Trace); Urine Bilirubin 1+ (Negative); Urine Character Clear (Clear); Urine Color Yellow; Urine Glucose Negative (Negative); Urine Ketone Negative (Negative); Urine Leukocyte Negative (Negative); Urine Nitrite Negative (Negative); Urine Occult Blood Negative (Negative); Urine Urobilinogen Negative (Neg - 1+)
== END ==
LOC: REG 12:13
PROVIDERS: ATTENDING PHYSICIAN Dermatology; FAMILY PHYSICIAN Family Medicine
DX: E78.5 Hyperlipidemia, unspecified (principal); I48.0 Paroxysmal atrial fibrillation; L30.8 Other specified dermatitis
CPT/HCPCS: 36415; 80053; 80061; 81003; 84443; 85025

== ENCOUNTER 2023-12-06 08:00 | Day surgery (SDC) | payer MEDICARE, OTHER, SELFPAY ==
[2023-12-06 08:54] VITALS: BP 148/83
[2023-12-06 09:01] VITALS: BMI 25.6
[2023-12-06 09:22] VITALS: BMI 25.6
[2023-12-06 09:57] VITALS: BP 138/72
[2023-12-06 10:00] VITALS: BP 145/73
[2023-12-06 10:15] VITALS: BP 153/67
[2023-12-06 10:30] VITALS: BP 161/78
== END 2023-12-06 10:52 | disposition home or self-care (01) ==
LOC: SDS 08:00
PROVIDERS: ATTENDING PHYSICIAN Specialist
DX: K22.2 Esophageal obstruction (principal); K22.0 Achalasia of cardia; R13.10 Dysphagia, unspecified
CPT/HCPCS: 43236; J0585

== ENCOUNTER → 2024-02-22 15:26 | Outpatient (REF) | payer MEDICARE, OTHER, SELFPAY | LOC: WDC 15:26 | PROVIDERS: ATTENDING PHYSICIAN Family Medicine; FAMILY PHYSICIAN Obstetrics & Gynecology | DX: Z12.31 Encounter for screening mammogram for malignant neoplasm of breast (principal) | CPT/HCPCS: 77063; 77067 ==

== ENCOUNTER → 2024-08-07 13:51 | Outpatient (REF) | payer MEDICARE, OTHER, SELFPAY | LOC: RAD 13:51 | PROVIDERS: ATTENDING PHYSICIAN Physician Assistant | DX: R06.2 Wheezing (principal) | CPT/HCPCS: 71046 ==

== ENCOUNTER → 2024-08-29 09:34 | Outpatient (REF) | payer MEDICARE, OTHER, SELFPAY ==
[2024-08-29 11:35] LABS: % Basophils 0.6 % (0-2); % Immature Granulocytes 0.2 % (0-0.5); % Lymphocytes 30.8 % (20.5-51.1); % Monocytes 9.8 % (1.7-9.3); % Neutrophils 47.6 % (42.2-75.2); Absolute Eosinophils 0.5 10^3/uL (0-0.7); Absolute Lymphocytes 1.5 10^3/uL (1.2-3.4); Absolute Monocytes 0.5 10^3/uL (0.1-0.6); Absolute Neutrophils 2.3 10^3/uL (1.4-6.5); Hematocrit 37.6 % (37.0-47.0); Hemoglobin 12.3 g/dL (12.0-16.0); Mean Corp Hgb Conc. 32.7 g/dL (33.0-37.0); Mean Corpuscular Hgb 32.6 pg (27.0-31.0); Mean Corpuscular Volume 99.7 fL (81.0-99.0); Mean Platelet Volume 10.5 fL (7.4-10.4); Nucleated Red Blood Cells % 0 %; Platelet Count 164 10^3/uL (130-400); Red Blood Cell Count 3.77 10^6/uL (4.20-5.40); Red Cell Dist. Width 14.1 % (11.5-14.5); White Blood Cell Count 4.9 10^3/uL (4.8-10.8)
[2024-08-29 11:42] LABS: Erythrocyte Sed Rate 21 mm/hour (0-20)
[2024-08-29 11:46] LABS: C-Reactive Protein < 5.00 mg/L (0.0-10.00)
[2024-08-29 23:31] LABS: IgA 121 mg/dl (70-400); IgG 833 mg/dl (700-1600); IgM 80 mg/dl (40-230)
[2024-08-31 00:56] LABS: Alternaria tenuis <0.10 kU/L (<=0.34); Aspergillus fumigatus <0.10 kU/L (<=0.34); Bermuda Grass 0.19 kU/L (<=0.34); Birch Tree <0.10 kU/L (<=0.34); Box Elder/Maple Tree 0.17 kU/L (<=0.34); Cat Epithelium/Dander <0.10 kU/L (<=0.34); Common Pigweed <0.10 kU/L (<=0.34); Common/Short Ragweed <0.10 kU/L (<=0.34); Cottonwood Tree <0.10 kU/L (<=0.34); Dermatophagoides farinae <0.10 kU/L (<=0.34); Dermatophagoides pteronyssinus <0.10 kU/L (<=0.34); Dog Dander <0.10 kU/L (<=0.34); Elm Tree 0.14 kU/L (<=0.34); German Cockroach <0.10 kU/L (<=0.34); Hormodendrum <0.10 kU/L (<=0.34); IgE 176 kU/L (<=214); Mountain Cedar Tree <0.10 kU/L (<=0.34); Mouse Epithelium <0.10 kU/L (<=0.34); Mucor racemosus <0.10 kU/L (<=0.34); Mugwort Weed <0.10 kU/L (<=0.34); Oak Tree 0.13 kU/L (<=0.34); Penicillium notatum <0.10 kU/L (<=0.34); Sheep Sorrel Weed <0.10 kU/L (<=0.34); Sycamore Tree 0.12 kU/L (<=0.34); Timothy Grass 0.15 kU/L (<=0.34); Walnut Tree <0.10 kU/L (<=0.34); White Mulberry Tree <0.10 kU/L (<=0.34)
[2024-08-31 00:58] LABS: Clam <0.10 kU/L (<=0.34); Codfish <0.10 kU/L (<=0.34); Corn 0.17 kU/L (<=0.34); Egg White <0.10 kU/L (<=0.34); Milk (Cow's) <0.10 kU/L (<=0.34); Peanut 0.22 kU/L (<=0.34); Scallop <0.10 kU/L (<=0.34); Shrimp <0.10 kU/L (<=0.34); Soybean <0.10 kU/L (<=0.34); Walnut/Black Walnut <0.10 kU/L (<=0.34); Wheat 0.14 kU/L (<=0.34)
== END ==
LOC: REG 09:34
PROVIDERS: ATTENDING PHYSICIAN Internal Medicine Critical Care Medicine; REFERRING PHYSICIAN Dermatology
DX: J45.909 Unspecified asthma, uncomplicated (principal); J30.2 Other seasonal allergic rhinitis; D89.89 Other specified disorders involving the immune mechanism, not elsewhere classified
CPT/HCPCS: 36415; 82784; 82785; 85025; 85652; 86003; 86140; 86331; 86606